=== PATIENT | female | born 1985 | race Two or more races ===

== ENCOUNTER 2021-02-04 10:11 | Outpatient (CLI) | payer OTHER | END 2021-02-04 14:46 | disposition home or self-care (01) | LOC: SONOGRAMA 10:11 | PROVIDERS: ATTEND Pathology Anatomic Pathology & Clinical Pathology | DX: E04.2 Nontoxic multinodular goiter (principal) ==

== ENCOUNTER 2023-04-01 08:53 | Outpatient (CLI) | payer OTHER | END 2023-04-01 08:55 | disposition home or self-care (01) | LOC: SONOGRAMA 08:53 | PROVIDERS: ATTEND Pathology Anatomic Pathology & Clinical Pathology | DX: D34 Benign neoplasm of thyroid gland (principal); E04.1 Nontoxic single thyroid nodule ==